=== PATIENT | female | born 1960 | race Caucasian/White ===

== ENCOUNTER → 2017-07-27 | Outpatient (CLI) | payer BC ==
[~2017-07-27] MED LIST: AMOXICILLIN AND1 TA2 PO; CHEWABLE ASPIRI81 MG PO; FLOMAX0.4 MG PO; LORTAB 5/500 501 TAB PO; PERCOCET1 TAB PO; PROTONIX 40MG T40 MG PO; ZOFRAN ODT4 MG PO
[2017-07-27 11:36] LABS: CORONAVIRUS 229E NOT DETECTED (NOT DETECTE); CORONAVIRUS HKU 1 NOT DETECTED (NOT DETECTE); CORONAVIRUS NL63 NOT DETECTED (NOT DETECTE); CORONAVIRUS OC43 NOT DETECTED (NOT DETECTE); RHINOVIRUS/ENTEROVIRUS NOT DETECTED (NOT DETECTE)
== END ==
LOC: LAB 11:35
PROVIDERS: Internal Medicine Adolescent Medicine
DX: R05 Cough (principal)